=== PATIENT | male | born 1965 | race Two or more races ===

== ENCOUNTER 2019-09-13 11:58 | Inpatient (IN) | payer MEDICAID ==
[~2019-09-13] VITALS: Ht 175.3 cm; Wt 126.6 kg
[2019-09-13] VITALS (21 sets, daily range): BP systolic 96–147; BP diastolic 51–83
--- NOTE | 2019-09-13 16:10 | NUR ---
Received intubated patient from transport on ventilator with given settings of: AC mode, rate of 35, +16, 100% FiO2. ETT 7.5mm at 23cm lip line. Switched patient on Esposito vent with same settings with no complications. All alarms on and audible. Ambubag at bedside. Suctioned small amounts of white pale thin secretions from ETT. Airway is patent and secured with anchor fast. ABG and EKG was ordered and done. Will Continue to monitor through out shift.
--- NOTE | 2019-09-13 16:23 | NUR ---
RECEIVED PATIENT FROM [facility], PATIENT UNSTABLE , PATIENT TACHYPNEIC, PT TACHY. BP WNL
[2019-09-13] MEDS ORDERED: FENTANYL CITRAT IV 1,000 MCG in IV NORMAL SALINE 80 ML IV PRN ×2 (16:45→17:15)
[2019-09-13] MEDS ORDERED: VECURONIUM BROMIDE 50 MG in IV NORMAL SALINE 50 ML IV PRN ×2 (16:45→17:30)
[2019-09-13 17:35] LABS: ABG BASE EXCESS -3.2 mmol/L; ABG HCO3 34.9 mmol/L; ABG PCO2 161.1 mmHg (35.0-45.0); ABG PH 6.953 (7.350-7.450); ABG PO2 75.9 mmHg (75.0-100.0); ABG SITE RIGHT RADIAL; ABG TOTAL HEMOGLOBIN 16.8 G/dL (13.5-18.0); COHb 0.8 % (0.5-1.5); MetHb 0.7 % (0.0-1.5); O2Hb 90.3 % (94.0-97.0); VENT MODE VENT - A/C; VT, ABG 400 mL
[2019-09-13] MEDS: MIDAZOLAM HCL 50 MG in IV NORMAL SALINE 40 ML IV PRN (17:35)
[2019-09-13] MEDS: ACETAMINOPHEN 650 MG/20.3 ML LIQUID UDC GT PRN (18:11)
[2019-09-13] MEDS: FENTANYL CITRAT IV 1,000 MCG in IV NORMAL SALINE 80 ML IV PRN (18:16)
--- NOTE | 2019-09-13 19:30 | NUR ---
Report received. Patient was a transfer from [facility] DX: COVID 19. Orally intubated and to mechanical ventilator. Dr. Phan here writing orders. Plan of care discussed. Spoke to Pharmacist Keagan re: Remdesivir order. Patient's daughter called, but speaks only Romansh; unable to discuss on going treatments. Patient on continuous Versed and Fentanyl drips via infusion pumps. See IV spread sheet for rates/dosages. Addendum: 09/14/19 at 0227 by TOÑITO MATA RN Amended: Links added.
[2019-09-13 19:33] LABS: MetHb 0.8 % (0.0-1.5); VENT MODE VENT - A/C
--- NOTE | 2019-09-13 19:33 | NUR ---
ABGs drawn by Keagan FENTON; results seen by Dr. Phan. TV increased to 500 ml. PCXR done.
[2019-09-13] MEDS ORDERED: PROPOFOL 100 ML IV PRN (19:45)
--- NOTE | 2019-09-13 20:00 | NUR ---
[id number]; with continuous cooling mattress on. COVID 19 isolation maintained.
--- NOTE | 2019-09-13 20:30 | NUR ---
Dr. Darling here. Spoke with Dr. Phan re: patient's plan of care. PICC line order received. Livestock Farmworker notified.
[2019-09-13 20:39] LABS: BASOPHILS # (AUTO) 0.2 K/uL (0.0-8.0); BASOPHILS % (AUTO) 0.9 % (0.0-2.0); HEMATOCRIT 48.8 % (36.7-47.1); HEMOGLOBIN 15.8 g/dL (12.5-16.3); LYMPHOCYTES # (AUTO) 1.1 K/uL (20.0-40.0); LYMPHOCYTES % (AUTO) 4.6 % (20.5-51.5); MEAN CORPUSCULAR HEMOGLOBIN 31.9 uug (23.8-33.4); MEAN CORPUSCULAR HGB CONC 32 g/dL (32.5-36.3); MEAN CORPUSCULAR VOLUME 98.7 fL (73.0-96.2); MONOCYTES # (AUTO) 1.1 K/uL (2.0-10.0); MONOCYTES % (AUTO) 4.7 % (0.0-11.0); NEUTROPHILS # (AUTO) 21.5 K/uL (1.8-8.9); NEUTROPHILS % (AUTO) 89.8 % (38.5-71.5); PLATELET COUNT (AUTO) 353 K/uL (152-348); RED BLOOD CELL COUNT(AUTO) 4.95 MIL/uL (4.06-5.63); WHITE BLOOD COUNT (AUTO) 23.9 K/uL (3.6-10.2)
--- NOTE | 2019-09-13 20:45 | NUR ---
Spoke to Matt adler RN at [facility] re: Remdesivir. As per Matt patient did not receive any dose at their facility. Pharmacist Keagan nolasco.
[2019-09-13] MEDS ORDERED: FAMOTIDINE. 20 MG/2 ML VIAL IV SCH (21:00)
[2019-09-13 21:04] LABS: BILIRUBIN,DIRECT 0.2 mg/dL (0.0-0.2); BILIRUBIN,TOTAL 0.5 mg/dL (0.2-1.0); CREATININE 3.8 mg/dL (0.6-1.3); MAGNESIUM 3.4 mg/dL (1.8-2.4); TOTAL PROTEIN, SERUM 7.6 g/dL (6.4-8.2)
[2019-09-13 21:09] LABS: PHOSPHOROUS 12.3 mg/dL (2.5-4.9); POTASSIUM 6.5 mmol/L (3.5-5.1)
[2019-09-13] MEDS ORDERED: MORPHINE SULFATE 2 MG/1 ML DISP.SYRIN IV PRN (21:15)
[2019-09-13] MEDS ORDERED: ACETAMINOPHEN 650 MG SUPP.RECT RC PRN (21:15)
--- NOTE | 2019-09-13 21:15 | NUR ---
Dr. Darling informed of critical labs; orders received.
[2019-09-13] MEDS: CEFTRIAXONE 1 G in IV DEXTROSE 5% 50 ML IV SCH (21:16)
[2019-09-13] MEDS: DEXAMETHASONE SOD PHOSPHATE 10 MG INJ IV SCH (21:16)
[2019-09-13] MEDS: ENOXAPARIN SODIUM 100 MG/ML DISP.SYRIN SQ SCH (21:17)
[2019-09-13] MEDS: IV NS 1000 ML 1,000 ML IV PRN (21:20)
[2019-09-13] MEDS ORDERED: INSULIN REGULAR, HUMAN 300 UNIT/3 ML VIAL IV ONE (21:45)
[2019-09-13] MEDS ORDERED: DEXTROSE 50% 50 ML DISP.SYRIN IV ONE (21:45)
[2019-09-13] MEDS ORDERED: DEXTROSE 50% 50 ML DISP.SYRIN IV PRN (22:00)
[2019-09-13] MEDS ORDERED: REMDESIVIR (INVESTIGATIONAL) 200 MG in IV NORMAL SALINE 210 ML IV ONE (22:00)
--- NOTE | 2019-09-13 22:00 | NUR ---
Remdesivir IV given. VS monitored closely.
[2019-09-13 22:23] LABS: ABG BASE EXCESS -3.5 mmol/L; ABG HCO3 32.1 mmol/L; ABG PCO2 128.1 mmHg (35.0-45.0); ABG PH 7.017 (7.350-7.450); ABG PO2 101.8 mmHg (75.0-100.0); ABG SITE LEFT RADIAL; ABG TOTAL HEMOGLOBIN 16.2 G/dL (13.5-18.0); COHb 0.8 % (0.5-1.5); O2Hb 96.1 % (94.0-97.0); VT, ABG 500 mL
--- NOTE | 2019-09-13 22:40 | NUR ---
Repeat ABGs done by RT. Results called to Dr. Phan; orders received. Vent changes made by Keagan FENTON. O2 saturations 95-96%.
--- NOTE | 2019-09-13 22:43 | NUR ---
VENT CHANGES, PER T/O DR BEE, VT 550ML, DECREASE PEEP14, KEEP ABOVE 92%, R/N. NOTIFIED. Loretta RAYMUNDO NETWORK DEVELOPMENT COORDINATOR Addendum: 09/13/19 at 2244 by EMILIE RAYMUNDO RT Amended: Links added.
--- NOTE | 2019-09-13 23:30 | NUR ---
Remdesivir dose completed with untoward reactions. BPs stable.
[2019-09-13] MEDS: BLOOD SUGAR DIAGNOSTIC 1 EACH STRIP VI SCH (23:45)
[2019-09-13] MEDS: INSULIN REGULAR, HUMAN 300 UNIT/3 ML VIAL SQ PRN (23:46)
[2019-09-14] VITALS (75 sets, daily range): BP systolic 103–167; BP diastolic 50–89
[2019-09-14 00:31] LABS: BAND % (MANUAL) 6 % (0-10); LYMPHOCYTES % (MANUAL) 3 % (20-40); METAMYELOCYTES % 1 % (0-1); MONOCYTES % (MANUAL) 2 % (2-10); NEUTROPHILS % (MANUAL) 88 % (42-75)
[2019-09-14] MEDS: ALBUTEROL SULFATE 8 GM HFA.AER.AD IH SCH ×4 (01:45→19:33)
--- NOTE | 2019-09-14 02:00 | NUR ---
PT ON CONT RUSSELL VENT WITH 7.5 ET/TUBE , LIP LINE 23CM, IN PLACE AND SECURED, WITH ANCHOR FAST, SETTINGS, A/C 35, 400ML, PEEP16, 100%. PT WITH HIGH PCO2 RETENTION, ABG WAS DRAWN, DR BEE PRESENT. THEN ADJUST VENT TO VT 500ML, REPEAT ABG APPROX, 22:15, SLIGHTLY IMPROVED, DR BEE CALLED, NEW SETTINGS, VT 550ML, PEEP14, SUCTIONED VERY LITTLE, SPUTUM OBTAINED, APPROX. 0130 INFORMED NURSE TOÑITO, PT IN ISOLATION , MDI GIVEN X 1 - CHANGE HME, ALL PPE EQUIPMENT USED, ABG IN AM 0800. Loretta RAYMUNDO REFRIGERATOR REPAIRMAN Addendum: 09/14/19 at 0204 by EMILIE RAYMUNDO RT Amended: Links added.
--- NOTE | 2019-09-14 05:00 | NUR ---
Moderately agitated; bucking the vent. Versed drip titrated for adequate sedation. VS monitored closely.
[2019-09-14 05:39] LABS: BILIRUBIN,DIRECT 0.2 mg/dL (0.0-0.2); BILIRUBIN,TOTAL 0.4 mg/dL (0.2-1.0); CREATININE 3.5 mg/dL (0.6-1.3)
[2019-09-14] MEDS: BLOOD SUGAR DIAGNOSTIC 1 EACH STRIP VI SCH ×4 (05:42→23:46)
[2019-09-14] MEDS: INSULIN REGULAR, HUMAN 300 UNIT/3 ML VIAL SQ PRN ×4 (05:43→23:47)
[2019-09-14 05:47] LABS: THYROID STIMULATING HORMONE 0.415 mIU/mL (0.358-3.740)
[2019-09-14 05:58] LABS: POTASSIUM 6.2 mmol/L (3.5-5.1)
--- NOTE | 2019-09-14 06:00 | NUR ---
Remains on the same vent settings. Saturations above 94%. Versed drip up to 6 mg/H, Fentanyl drip at 50 mcg/H. BPs 140's-160's systole. Remains tachycardic rate 110's.
[2019-09-14] MEDS: MIDAZOLAM HCL 50 MG in IV NORMAL SALINE 40 ML IV PRN ×3 (06:15→20:27)
[2019-09-14 06:53] LABS: BASOPHILS % (AUTO) 0.2 % (0.0-2.0); HEMATOCRIT 45.2 % (36.7-47.1); HEMOGLOBIN 14.7 g/dL (12.5-16.3); LYMPHOCYTES # (AUTO) 0.8 K/uL (20.0-40.0); LYMPHOCYTES % (AUTO) 4.7 % (20.5-51.5); MEAN CORPUSCULAR HGB CONC 33 g/dL (32.5-36.3); MEAN CORPUSCULAR VOLUME 98.4 fL (73.0-96.2); MONOCYTES # (AUTO) 0.8 K/uL (2.0-10.0); MONOCYTES % (AUTO) 4.8 % (0.0-11.0); NEUTROPHILS # (AUTO) 15.3 K/uL (1.8-8.9); NEUTROPHILS % (AUTO) 90.3 % (38.5-71.5); PLATELET COUNT (AUTO) 191 K/uL (152-348)
[2019-09-14 07:20] LABS: MAGNESIUM 2.9 mg/dL (1.8-2.4); PHOSPHOROUS 7.6 mg/dL (2.5-4.9)
[2019-09-14 07:47] LABS: ABG HCO3 24.4 mmol/L; ABG PCO2 85.3 mmHg (35.0-45.0); ABG PH 7.074 (7.350-7.450); ABG PO2 102.9 mmHg (75.0-100.0); ABG SITE RIGHT RADIAL; ABG TOTAL HEMOGLOBIN 15.8 G/dL (13.5-18.0); COHb 0.8 % (0.5-1.5); MetHb 0.6 % (0.0-1.5); O2Hb 96.5 % (94.0-97.0); VENT MODE VENT - A/C 35; VT, ABG 550 mL
[2019-09-14] MEDS ORDERED: DEXTROSE 50% 50 ML DISP.SYRIN IV ONE (08:30)
[2019-09-14] MEDS ORDERED: INSULIN REGULAR, HUMAN 300 UNIT/3 ML VIAL IV ONE (08:30)
[2019-09-14] MEDS ORDERED: INSULIN REGULAR, HUMAN 300 UNIT/3 ML VIAL SQ ONE (08:30)
[2019-09-14] MEDS: DEXAMETHASONE SOD PHOSPHATE 10 MG INJ IV SCH (09:06)
[2019-09-14] MEDS: ENOXAPARIN SODIUM 100 MG/ML DISP.SYRIN SQ SCH (09:06)
[2019-09-14] MEDS: INSULIN GLARGINE,HUM 300 UNITS/3 ML CARTRIDGE SQ SCH ×2 (09:09→21:10)
[2019-09-14] MEDS: ACETAMINOPHEN 650 MG/20.3 ML LIQUID UDC GT PRN (09:10)
[2019-09-14] MEDS: FENTANYL CITRAT IV 1,000 MCG in IV NORMAL SALINE 80 ML IV PRN ×2 (10:02→19:09)
[2019-09-14] MEDS: IV NS 1000 ML 1,000 ML IV PRN (10:50)
[2019-09-14] MEDS ORDERED: methylPREDNISolone SOD SUCC 40 MG/ML VIAL IV ONE (11:30)
[2019-09-14] MEDS ORDERED: ACETAMINOPHEN 650 MG/20.3 ML LIQUID UDC NG ONE (13:30)
[2019-09-14] MEDS ORDERED: diphenhydrAMINE 50 MG/1 ML VIAL IV ONE (13:30)
[2019-09-14 13:54] LABS: CREATININE 4.1 mg/dL (0.6-1.3)
[2019-09-14] MEDS ORDERED: TOCILIZUMAB 400 MG in IV NORMAL SALINE 80 ML IV ONE (14:00)
[2019-09-14 14:09] LABS: POTASSIUM 6.2 mmol/L (3.5-5.1)
[2019-09-14] MEDS ORDERED: REMDESIVIR (INVESTIGATIONAL) 100 MG in IV NORMAL SALINE 230 ML IV SCH ×2 (15:45→21:00)
[2019-09-14] MEDS ORDERED: HEPARIN SODIUM,PORCINE 5,000 UNITS/ML VIAL IV PRN ×2 (15:45)
[2019-09-14] MEDS ORDERED: SODIUM POLYSTYRENE SULFONATE 15 G/60 ML LIQUID UDC PO ONE (17:00)
--- NOTE | 2019-09-14 17:25 | NUR ---
pt rec'd on menendez vent, orally intubated tolerating settings well, no distress noted. inline MDI tx's given per MD order. Sxn'ing performed Q2, oral care performed. vent setting change done during shift, PEEP 14 decrease to 12. cont with current RT plan of care. cont to monitor and report any changes.
--- NOTE | 2019-09-14 20:00 | NUR ---
RECEIVED PT ORALLY INTUBATED TO VENT W/ SETTINGS OF AC-35, TV-550, FIO2-100%, PEEP-+12 W/ O2 SAT OF 93%. ORAL GASTRIC TUBE INTACT & CLAMPED. PICC LINE ON AUTUMN INTACT & PATENT. VERSED @7MG/HR. FENTANYL DRIP @ 115MCQ/HR. NS @ 80CC/HR. ORAL CARE DONE AFTER SUCTIONED BY RT. AFEBRILE. Addendum: 09/15/19 at 0243 by GRADY BAR RN FENTANYL DRIP @ 0.115MCQ/HR.
[2019-09-14] MEDS ORDERED: BUMETANIDE INJ 8 MG in IV DEXTROSE 5% 48 ML IV ONE (21:00)
[2019-09-14] MEDS ORDERED: HEPARIN SODIUM,PORCINE 5,000 UNITS/ML VIAL IV ONE (21:00)
[2019-09-14] MEDS: FAMOTIDINE. 20 MG/2 ML VIAL IV SCH (21:07)
[2019-09-14] MEDS: CEFTRIAXONE 1 G in IV DEXTROSE 5% 50 ML IV SCH (21:08)
[2019-09-14] MEDS: HEPARIN/D5W DRIP 500 ML IV PRN (21:23)
[2019-09-14] MEDS: SODIUM BICARBONATE 8.4% 100 MEQ in IV 1/2NS 1000 ML 1,000 ML IV PRN (21:37)
[2019-09-15] VITALS (26 sets, daily range): BP systolic 110–145; BP diastolic 61–76
--- NOTE | 2019-09-15 | NUR ---
BEDBATH GIVEN W/ MAXIMUM HELP FROM OTHER STAFF MEMBER.
[2019-09-15] MEDS: ALBUTEROL SULFATE 8 GM HFA.AER.AD IH SCH ×4 (00:40→19:35)
[2019-09-15] MEDS: FENTANYL CITRAT IV 1,000 MCG in IV NORMAL SALINE 80 ML IV PRN ×3 (03:42→18:29)
[2019-09-15 04:10] LABS: BILIRUBIN,DIRECT 0.2 mg/dL (0.0-0.2); BILIRUBIN,TOTAL 0.3 mg/dL (0.2-1.0); CREATININE 4.4 mg/dL (0.6-1.3); MAGNESIUM 3.2 mg/dL (1.8-2.4); PHOSPHOROUS 5.9 mg/dL (2.5-4.9); POTASSIUM 5.3 mmol/L (3.5-5.1); TOTAL PROTEIN, SERUM 6.2 g/dL (6.4-8.2)
[2019-09-15 04:19] LABS: BASOPHILS % (AUTO) 0.1 % (0.0-2.0); HEMATOCRIT 41.4 % (36.7-47.1); HEMOGLOBIN 13.8 g/dL (12.5-16.3); LYMPHOCYTES # (AUTO) 0.4 K/uL (20.0-40.0); LYMPHOCYTES % (AUTO) 3.5 % (20.5-51.5); MEAN CORPUSCULAR HEMOGLOBIN 32.4 uug (23.8-33.4); MEAN CORPUSCULAR HGB CONC 33 g/dL (32.5-36.3); MEAN CORPUSCULAR VOLUME 97.1 fL (73.0-96.2); MONOCYTES # (AUTO) 0.6 K/uL (2.0-10.0); MONOCYTES % (AUTO) 5.7 % (0.0-11.0); NEUTROPHILS # (AUTO) 9.9 K/uL (1.8-8.9); NEUTROPHILS % (AUTO) 90.7 % (38.5-71.5); PLATELET COUNT (AUTO) 177 K/uL (152-348); RED BLOOD CELL COUNT(AUTO) 4.27 MIL/uL (4.06-5.63); WHITE BLOOD COUNT (AUTO) 10.9 K/uL (3.6-10.2)
--- NOTE | 2019-09-15 04:48 | NUR ---
Patient received orally intubated with a 7.5 Ettube, ~23cm lipline. Tube is secured with anchorfast: position changed throughout shift to prevent skin abrasion. He is on Esposito vent with prescribed settings. Titrated Fio2, Spo2 remains 99-100%. MDI TXs administered and tolerated well, no adverse reactions noted. Alarms assessed and are on/audible. Ambubag at bedside. Will continue to monitor throughout shift.
[2019-09-15 05:32] LABS: *BILIRUBIN,URIN NEGATIVE (NEGATIVE); *BLOOD, URINE 2+ (NEGATIVE); *CLARITY,URINE CLOUDY (CLEAR); *COLOR,URINE DARK YELLOW (YELLOW); *KETONES,URINE NEGATIVE (NEGATIVE); *UROBILINOGEN,URINE 0.2 E.U./dl (NORMAL); LEUKOCYTE ESTERASE ,URINE 2+ (NEGATIVE); NITRITE, URINE NEGATIVE (NEGATIVE); UGLUCOSE NEGATIVE (NEGATIVE)
[2019-09-15 05:35] LABS: *CREATININE,URINE 84.4 mg/dL (30-125); *URINE TOTAL PROTEIN RANDOM 37.6 mg/dL (<150/24HR)
--- NOTE | 2019-09-15 05:45 | NUR ---
REPOSITIONED PT AFTER CXR.
[2019-09-15] MEDS: BLOOD SUGAR DIAGNOSTIC 1 EACH STRIP VI SCH ×3 (05:59→17:21)
[2019-09-15] MEDS: INSULIN REGULAR, HUMAN 300 UNIT/3 ML VIAL SQ PRN ×3 (06:01→17:20)
[2019-09-15] MEDS: MIDAZOLAM HCL 50 MG in IV NORMAL SALINE 40 ML IV PRN ×2 (06:52→13:47)
[2019-09-15 07:43] LABS: ABG BASE EXCESS -1.6 mmol/L; ABG HCO3 25.6 mmol/L; ABG PH 7.301 (7.350-7.450); ABG SITE LEFT RADIAL; ABG TOTAL HEMOGLOBIN 14.2 G/dL (13.5-18.0); COHb 0.6 % (0.5-1.5); MetHb 0.5 % (0.0-1.5); O2Hb 89.7 % (94.0-97.0); VENT MODE VENT - A/C; VT, ABG 550 mL
[2019-09-15 08:13] LABS: BACTERIA,URINE MANY /HPF (NONE SEEN); SQUAMOUS EPITHELIAL CELL,UR FEW /HPF (NONE SEEN); WBC,URINE 50-80 /HPF (0-3)
[2019-09-15 08:14] LABS: URIC ACID CRYSTALS,URINE MODERATE /HPF (NONE SEEN)
[2019-09-15] MEDS: DEXAMETHASONE SOD PHOSPHATE 10 MG INJ IV SCH (08:16)
[2019-09-15] MEDS: INSULIN GLARGINE,HUM 300 UNITS/3 ML CARTRIDGE SQ SCH ×2 (08:18→21:27)
[2019-09-15] MEDS: SODIUM BICARBONATE 8.4% 100 MEQ in IV 1/2NS 1000 ML 1,000 ML IV PRN ×2 (08:48→20:19)
--- NOTE | 2019-09-15 09:42 | NUR ---
Dr. Phan here to see pt. Full report given. New orders received.
--- NOTE | 2019-09-15 10:42 | NUR ---
Per Dr. Phan, no high level of care or plan for ECMO therapy for pt needed at this time.
[2019-09-15] MEDS: METOPROLOL TARTRATE 5 MG/5 ML VIAL IVP PRN (12:23)
[2019-09-15] MEDS: HEPARIN/D5W DRIP 500 ML IV PRN (14:07)
[2019-09-15] MEDS: ACETAMINOPHEN 650 MG/20.3 ML LIQUID UDC GT PRN ×2 (18:32→21:27)
--- NOTE | 2019-09-15 19:15 | NUR ---
Patient received in bed in semi-carlos's position, he is orally intubated with a 7.5 Ett @23cm lip line. He is on Esposito vent AC 28, Vt 550, FiO2 30%, PEEP 12. Spo2 95%. Patient has numerous IV lines, AUTUMN PICC, Right and Left AC peripheral line. OGT clamped to suction. F/C draining cloudy yellow urine. Patient is on continuous rectal temperature monitoring and on a cooling blanket for consistent >101* temperature.
[2019-09-15] MEDS ORDERED: DOXYCYCLINE HYCLATE IV 200 MG in IV DEXTROSE 5% 250 ML IV SCH (21:00)
[2019-09-15] MEDS: FAMOTIDINE. 20 MG/2 ML VIAL IV SCH (21:15)
[2019-09-15] MEDS: CEFTRIAXONE 1 G in IV DEXTROSE 5% 50 ML IV SCH (21:16)
[2019-09-15] MEDS: DOXYCYCLINE HYCLATE IV 100 MG in IV DEXTROSE 5% 100 ML IV SCH (21:27)
--- NOTE | 2019-09-15 21:38 | NUR ---
Pt rec'd on Esposito settings AC 28, VT 550, PEEP +12 and FIO2-90%. No resp. distress noted. 7.5 ETT is patent and secure at approx. 23cm at the lip. Pt to be monitored throughout the shift, PRN SX and adm'd MDI tx's per MD orders. Esposito alarm parameters have been checked and remain audible.
--- NOTE | 2019-09-15 23:05 | NUR ---
FIO2 to 100% per low SpO2. RN BR aware/notified. No resp. distress noted at this time.
--- NOTE | 2019-09-15 23:10 | NUR ---
Around 2200, patient was experiencing desaturation down to the low 80s, and has become quite agitated. Suctioning scant secretions from ETT, and small amounts orally, however this had no affect on oxygen saturation. Patient repositioned and RT increased FiO2 settings on the vent to 100%. Increased fentanyl drip to reduce agitation. Patient slowly returned to 93-95% saturation, and agitation decreased.
[2019-09-16] VITALS (23 sets, daily range): BP systolic 107–156; BP diastolic 66–97
[2019-09-16] MEDS: ALBUTEROL SULFATE 8 GM HFA.AER.AD IH SCH ×4 (00:32→19:43)
[2019-09-16] MEDS: BLOOD SUGAR DIAGNOSTIC 1 EACH STRIP VI SCH ×4 (00:36→18:05)
[2019-09-16] MEDS: INSULIN REGULAR, HUMAN 300 UNIT/3 ML VIAL SQ PRN ×4 (00:37→18:07)
[2019-09-16] MEDS: MIDAZOLAM HCL 50 MG in IV NORMAL SALINE 40 ML IV PRN ×4 (00:52→15:03)
[2019-09-16] MEDS: FENTANYL CITRAT IV 1,000 MCG in IV NORMAL SALINE 80 ML IV PRN ×5 (00:53→23:49)
--- NOTE | 2019-09-16 02:00 | NUR ---
Patient is experiencing high tachycardia rates in the 140s-160. Blood pressure also elevated with 150 systolic. Administered PRN Metoprolol IVP.
[2019-09-16] MEDS: METOPROLOL TARTRATE 5 MG/5 ML VIAL IVP PRN ×2 (02:05→15:03)
[2019-09-16] MEDS ORDERED: FENTANYL CITRATE 100 MCG/2 ML AMPUL ONE ×3 (04:20→04:36)
[2019-09-16 05:28] LABS: BASOPHILS # (AUTO) 0.1 K/uL (0.0-8.0); BASOPHILS % (AUTO) 1.1 % (0.0-2.0); HEMATOCRIT 43.2 % (36.7-47.1); HEMOGLOBIN 14.5 g/dL (12.5-16.3); LYMPHOCYTES # (AUTO) 0.4 K/uL (20.0-40.0); LYMPHOCYTES % (AUTO) 3.8 % (20.5-51.5); MEAN CORPUSCULAR HEMOGLOBIN 31.9 uug (23.8-33.4); MEAN CORPUSCULAR HGB CONC 34 g/dL (32.5-36.3); MEAN CORPUSCULAR VOLUME 94.9 fL (73.0-96.2); MONOCYTES # (AUTO) 0.6 K/uL (2.0-10.0); MONOCYTES % (AUTO) 6.3 % (0.0-11.0); NEUTROPHILS # (AUTO) 8.5 K/uL (1.8-8.9); NEUTROPHILS % (AUTO) 88.8 % (38.5-71.5); PLATELET COUNT (AUTO) 173 K/uL (152-348); RED BLOOD CELL COUNT(AUTO) 4.55 MIL/uL (4.06-5.63); WHITE BLOOD COUNT (AUTO) 9.6 K/uL (3.6-10.2)
[2019-09-16 05:37] LABS: BILIRUBIN,DIRECT 0.2 mg/dL (0.0-0.2); BILIRUBIN,TOTAL 0.5 mg/dL (0.2-1.0); CREATININE 3.8 mg/dL (0.6-1.3); MAGNESIUM 2.9 mg/dL (1.8-2.4); PHOSPHOROUS 6.6 mg/dL (2.5-4.9); POTASSIUM 4.5 mmol/L (3.5-5.1); TOTAL PROTEIN, SERUM 6.3 g/dL (6.4-8.2)
[2019-09-16] MEDS: HEPARIN/D5W DRIP 500 ML IV PRN (05:37)
[2019-09-16 07:23] LABS: ABG HCO3 26.7 mmol/L; ABG PCO2 46.6 mmHg (35.0-45.0); ABG PH 7.376 (7.350-7.450); ABG PO2 56.9 mmHg (75.0-100.0); ABG SITE LEFT RADIAL; ABG TOTAL HEMOGLOBIN 14.9 G/dL (13.5-18.0); MetHb 0.7 % (0.0-1.5); O2Hb 87.1 % (94.0-97.0); VENT MODE VENT - A/C; VT, ABG 550 mL
[2019-09-16] MEDS: DEXAMETHASONE SOD PHOSPHATE 10 MG INJ IV SCH (07:46)
[2019-09-16] MEDS: DOXYCYCLINE HYCLATE IV 100 MG in IV DEXTROSE 5% 100 ML IV SCH ×2 (07:46→20:35)
[2019-09-16] MEDS: INSULIN GLARGINE,HUM 300 UNITS/3 ML CARTRIDGE SQ SCH ×2 (08:24→21:38)
[2019-09-16] MEDS: SODIUM BICARBONATE 8.4% 100 MEQ in IV 1/2NS 1000 ML 1,000 ML IV PRN ×2 (08:32→20:55)
[2019-09-16] MEDS: ACETAMINOPHEN 650 MG/20.3 ML LIQUID UDC GT PRN (08:33)
--- NOTE | 2019-09-16 09:26 | NUR ---
Dr. Phan here to see pt. Full report given. New orders received.
[2019-09-16] MEDS ORDERED: Z GUARD REMEDY PASTE 57 GM TUBE TOP PRN (16:00)
--- NOTE | 2019-09-16 17:48 | NUR ---
Spoke with Dr. Dixon on the telephone and MD velázquez to start tube feeding for pt per dietary recommendations.
[2019-09-16] MEDS: GLUCERNA 1.2 1000ML LIQUID GT PRN (18:16)
--- NOTE | 2019-09-16 20:00 | NUR ---
RECEIVED PT ORALLY INTUBATED TO VENT W/ SETTINGS OF AC-28, TV-550, FIO2-100%,PEEP-+15 W/ O2 SAT OF 90%. ORAL GASTRIC TUBE IN PLACE, CHECKED PLACEMENT & CHECKED RESIDUAL NONE NOTED. STARTED TUBE FDG. OF GLUCERNA 1.2 @ 20CC/HR. ON FENTANYL DRIP @ 0.23 MG/HR. VIA PICC LINE ON AUTUMN. VERSED DRIP @ 7MG/HR. IVF 1/2NS W/ 100MEQ SODIUM BICARB @ 100 CC/HR. ON HEPARIN DRIP @ 1420 UNITS/HR. NS @ 10CC/H FO IVPB MED. REPOSITIONED W/ HOB ELEVATED.
[2019-09-16] MEDS: FAMOTIDINE. 20 MG/2 ML VIAL IV SCH (20:35)
[2019-09-16] MEDS: CEFTRIAXONE 1 G in IV DEXTROSE 5% 50 ML IV SCH (21:30)
[2019-09-17] VITALS (27 sets, daily range): BP systolic 123–161; BP diastolic 75–108
[2019-09-17] MEDS: BLOOD SUGAR DIAGNOSTIC 1 EACH STRIP VI SCH ×4 (00:06→17:34)
[2019-09-17] MEDS: INSULIN REGULAR, HUMAN 300 UNIT/3 ML VIAL SQ PRN ×4 (00:08→17:41)
[2019-09-17] MEDS: MIDAZOLAM HCL 50 MG in IV NORMAL SALINE 40 ML IV PRN ×4 (00:08→18:39)
[2019-09-17] MEDS: ALBUTEROL SULFATE 8 GM HFA.AER.AD IH SCH ×4 (01:34→19:30)
--- NOTE | 2019-09-17 02:00 | NUR ---
NGT RESIDUAL CHECKED 5CC NOTED , INCREASED RATE TO 30CC/HR.
[2019-09-17] MEDS: HEPARIN/D5W DRIP 500 ML IV PRN ×2 (02:20→21:13)
--- NOTE | 2019-09-17 02:23 | NUR ---
PT on cont vent menendez with 7.5 et/tube in place and secured, settings, a/c 28, vt 550ml, peep15, 100%, mdi given by nursing, suction, no vent changes made, sat 86_90% approx, change hme all vent alarms good, abg at 0700. D ZACKARY RAMIREZP Addendum: 09/17/19 at 0225 by EMILIE RAYMUNDO RT Amended: Links added.
--- NOTE | 2019-09-17 04:00 | NUR ---
AM CARE DONE. ORAL CARE DONE. REPOSITIONED W/ HOB ELEVATED.
[2019-09-17] MEDS: FENTANYL CITRAT IV 1,000 MCG in IV NORMAL SALINE 80 ML IV PRN ×4 (04:58→19:39)
[2019-09-17 05:34] LABS: BASOPHILS # (AUTO) 0.1 K/uL (0.0-8.0); BASOPHILS % (AUTO) 0.7 % (0.0-2.0); EOSINOPHILS % (AUTO) 0.1 % (0.0-7.0); HEMATOCRIT 48.4 % (36.7-47.1); HEMOGLOBIN 16.3 g/dL (12.5-16.3); LYMPHOCYTES # (AUTO) 0.4 K/uL (20.0-40.0); LYMPHOCYTES % (AUTO) 2.6 % (20.5-51.5); MEAN CORPUSCULAR HEMOGLOBIN 32.1 uug (23.8-33.4); MEAN CORPUSCULAR HGB CONC 34 g/dL (32.5-36.3); MEAN CORPUSCULAR VOLUME 95.3 fL (73.0-96.2); MONOCYTES # (AUTO) 0.5 K/uL (2.0-10.0); MONOCYTES % (AUTO) 3.4 % (0.0-11.0); NEUTROPHILS # (AUTO) 13.1 K/uL (1.8-8.9); NEUTROPHILS % (AUTO) 93.2 % (38.5-71.5); PLATELET COUNT (AUTO) 156 K/uL (152-348); RED BLOOD CELL COUNT(AUTO) 5.08 MIL/uL (4.06-5.63)
[2019-09-17 06:07] LABS: BILIRUBIN,DIRECT 0.1 mg/dL (0.0-0.2); BILIRUBIN,TOTAL 0.5 mg/dL (0.2-1.0); CREATININE 5.6 mg/dL (0.6-1.3); MAGNESIUM 3.2 mg/dL (1.8-2.4); POTASSIUM 4.9 mmol/L (3.5-5.1); TOTAL PROTEIN, SERUM 6.5 g/dL (6.4-8.2)
[2019-09-17 06:15] LABS: PHOSPHOROUS 11.2 mg/dL (2.5-4.9)
[2019-09-17] MEDS: IV NORMAL SALINE 250 ML IV PRN ×2 (06:31→21:32)
--- NOTE | 2019-09-17 06:43 | NUR ---
DR AGUILAR CALLED RE: [phone].
[2019-09-17] MEDS: SODIUM BICARBONATE 8.4% 100 MEQ in IV 1/2NS 1000 ML 1,000 ML IV PRN ×2 (07:02→18:34)
--- NOTE | 2019-09-17 07:33 | NUR ---
Patient received orally intubated with a 7.5 Ettube, ~23cm lipline. Tube is secured with anchor fast. Pt Esposito vent with prescribed settings.MDI TXs administered and tolerated well, no adverse reactions noted. Alarms assessed and are on/audible. Ambubag at bedside. Will continue to monitor throughout shift.
[2019-09-17 08:14] LABS: ABG BASE EXCESS -2.4 mmol/L; ABG PCO2 46.9 mmHg (35.0-45.0); ABG PH 7.327 (7.350-7.450); ABG PO2 61.3 mmHg (75.0-100.0); ABG SITE RIGHT RADIAL; ABG TOTAL HEMOGLOBIN 16.5 G/dL (13.5-18.0); COHb 0.6 % (0.5-1.5); MetHb 0.3 % (0.0-1.5); O2Hb 88.6 % (94.0-97.0); VENT MODE VENT - A/C; VT, ABG 550 mL
[2019-09-17 08:45] LABS: CRYPTOCOCCUS AB, SERUM Negative (Negative)
[2019-09-17] MEDS: DOXYCYCLINE HYCLATE IV 100 MG in IV DEXTROSE 5% 100 ML IV SCH ×2 (08:45→20:56)
[2019-09-17] MEDS: DEXAMETHASONE SOD PHOSPHATE 10 MG INJ IV SCH (08:45)
[2019-09-17] MEDS: INSULIN GLARGINE,HUM 300 UNITS/3 ML CARTRIDGE SQ SCH ×2 (08:48→20:27)
--- NOTE | 2019-09-17 09:45 | NUR ---
Pulmonary services, Dr. Phan in the unit to see and examine patient, report given orders received and implemented.
[2019-09-17] MEDS ORDERED: INSULIN GLARGINE,HUM 300 UNITS/3 ML CARTRIDGE SQ ONE (10:11)
--- NOTE | 2019-09-17 10:45 | NUR ---
PER MD ORDER. VENT CHANGES MADE; PCV RATE OF 28, PRESSURE CONTROL OF 35. PEEP +15. 100%FIO2. FOLLOW UP ABG ORDERED AFTER 1 HR. WILL CONTINUE TO MONITOR.
--- NOTE | 2019-09-17 10:45 | NUR ---
As ordered by boatswain mate Dr. Phan Vent settings changed to: PCV Rate 28, PS of 35. PEEP +15. and FIO2 100%. to be follow up by Post 1hr of setting change. changes implemented by RT. Mobley
[2019-09-17] MEDS: METOPROLOL TARTRATE 5 MG/5 ML VIAL IVP PRN (11:44)
[2019-09-17] MEDS ORDERED: BUMETANIDE INJ 4 MG in IV DEXTROSE 5% 24 ML IV ONE (11:45)
[2019-09-17] MEDS: METOPROLOL TARTRATE 25 MG TABLET NG SCH ×2 (11:46→20:31)
[2019-09-17] MEDS: MORPHINE SULFATE 2 MG/1 ML DISP.SYRIN IV PRN (11:48)
--- NOTE | 2019-09-17 12:15 | NUR ---
Dr. Phan called to be notified of follow up ABG post PS setting, orders to continue with care plan with no new orders received.
[2019-09-17 12:17] LABS: ABG BASE EXCESS -1.7 mmol/L; ABG HCO3 26.7 mmol/L; ABG PCO2 59.5 mmHg (35.0-45.0); ABG PO2 62.9 mmHg (75.0-100.0); ABG SITE LEFT RADIAL; COHb 0.7 % (0.5-1.5); MetHb 0.5 % (0.0-1.5); O2Hb 87.9 % (94.0-97.0); VENT MODE VENT - PCONTROL
--- NOTE | 2019-09-17 14:27 | NUR ---
A call from cardiothoracic surgeon Micha Balderas, and report on pt's current vent settings given, and as stated by him "there's no need for chest tube insertion at this time just repeat chest x-ray in am and pt will be follow up tomorro".
--- NOTE | 2019-09-17 16:45 | NUR ---
Attending physician Zack De La Rosa in the unit to see and examine pt. report given orders to continue with care plan received.
[2019-09-17] MEDS: CEFTRIAXONE 1 G in IV DEXTROSE 5% 50 ML IV SCH (20:17)
[2019-09-17] MEDS: FAMOTIDINE. 20 MG/2 ML VIAL IV SCH (20:30)
[2019-09-18] VITALS (24 sets, daily range): BP systolic 114–151; BP diastolic 70–98
[2019-09-18] MEDS: FENTANYL CITRAT IV 1,000 MCG in IV NORMAL SALINE 80 ML IV PRN ×8 (00:01→19:38)
[2019-09-18] MEDS: BLOOD SUGAR DIAGNOSTIC 1 EACH STRIP VI SCH ×5 (00:04→23:53)
[2019-09-18] MEDS: INSULIN REGULAR, HUMAN 300 UNIT/3 ML VIAL SQ PRN ×5 (00:06→23:57)
--- NOTE | 2019-09-18 00:31 | NUR ---
PT ON CONT RUSSELL VENT WITH 7.5 ET/ TUBE, ANCHOR FAST MOVED, SETTINGS, NO VENT CHANGES MADE, 100%, PEEP15, , PS 35 RATE 28 , SAT 93-96 %, VERY LITTLE SUCTION, ORAL CARE, MDI GIVEN BY NURSING . PT SEDATED, NO VENT CHANGES MADE AT THIS TIME, ALL VENT ALARMS GOOD, PPE WORN ,Loretta RAYMUNDO LENO SEWER Addendum: 09/18/19 at 0044 by EMILIE RAYMUNDO RT Amended: Links added.
[2019-09-18] MEDS: MIDAZOLAM HCL 50 MG in IV NORMAL SALINE 40 ML IV PRN ×3 (00:49→15:57)
[2019-09-18] MEDS: ALBUTEROL SULFATE 8 GM HFA.AER.AD IH SCH ×4 (01:30→20:05)
[2019-09-18] MEDS: IV NORMAL SALINE 250 ML IV PRN ×2 (03:17→23:44)
[2019-09-18] MEDS: SODIUM BICARBONATE 8.4% 100 MEQ in IV 1/2NS 1000 ML 1,000 ML IV PRN ×3 (04:35→17:02)
[2019-09-18 05:33] LABS: BASOPHILS # (AUTO) 0.1 K/uL (0.0-8.0); BASOPHILS % (AUTO) 0.3 % (0.0-2.0); EOSINOPHILS % (AUTO) 0.1 % (0.0-7.0); HEMATOCRIT 47.1 % (36.7-47.1); HEMOGLOBIN 15.6 g/dL (12.5-16.3); LYMPHOCYTES # (AUTO) 0.3 K/uL (20.0-40.0); LYMPHOCYTES % (AUTO) 1.4 % (20.5-51.5); MEAN CORPUSCULAR HEMOGLOBIN 31.4 uug (23.8-33.4); MEAN CORPUSCULAR HGB CONC 33 g/dL (32.5-36.3); MEAN CORPUSCULAR VOLUME 94.9 fL (73.0-96.2); MONOCYTES # (AUTO) 0.9 K/uL (2.0-10.0); MONOCYTES % (AUTO) 4.9 % (0.0-11.0); NEUTROPHILS # (AUTO) 17.4 K/uL (1.8-8.9); NEUTROPHILS % (AUTO) 93.3 % (38.5-71.5); PLATELET COUNT (AUTO) 186 K/uL (152-348); RED BLOOD CELL COUNT(AUTO) 4.97 MIL/uL (4.06-5.63); WHITE BLOOD COUNT (AUTO) 18.6 K/uL (3.6-10.2)
[2019-09-18 05:38] LABS: CREATININE 7.4 mg/dL (0.6-1.3); MAGNESIUM 3.2 mg/dL (1.8-2.4); POTASSIUM 5.5 mmol/L (3.5-5.1)
[2019-09-18 05:46] LABS: PHOSPHOROUS 14.3 mg/dL (2.5-4.9)
--- NOTE | 2019-09-18 08:10 | NUR ---
Patient received orally intubated with a 7.5 Ettube, ~23cm lipline. Tube is secured with anchor fast. Pt Esposito vent with prescribed settings. MDI TXs administered and tolerated well, no adverse reactions noted. Alarms assessed and are on/audible. Ambubag at bedside. Will continue to monitor throughout shift.
[2019-09-18] MEDS: METOPROLOL TARTRATE 25 MG TABLET NG SCH ×2 (08:17→21:33)
[2019-09-18] MEDS: DEXAMETHASONE SOD PHOSPHATE 10 MG INJ IV SCH (08:20)
[2019-09-18] MEDS: DOXYCYCLINE HYCLATE IV 100 MG in IV DEXTROSE 5% 100 ML IV SCH ×2 (08:20→21:14)
[2019-09-18] MEDS: INSULIN GLARGINE,HUM 300 UNITS/3 ML CARTRIDGE SQ SCH ×2 (08:27→21:42)
[2019-09-18 08:30] LABS: ABG BASE EXCESS -0.9 mmol/L; ABG HCO3 27.2 mmol/L; ABG PCO2 58.5 mmHg (35.0-45.0); ABG PH 7.286 (7.350-7.450); ABG PO2 66.4 mmHg (75.0-100.0); ABG SITE LEFT RADIAL; ABG TOTAL HEMOGLOBIN 16.4 G/dL (13.5-18.0); COHb 0.5 % (0.5-1.5); MetHb 0.6 % (0.0-1.5); O2Hb 89.9 % (94.0-97.0); VENT MODE VENT - PCONTROL; VT, ABG 0 mL
[2019-09-18] MEDS: ACETAMINOPHEN 650 MG/20.3 ML LIQUID UDC GT PRN (08:57)
--- NOTE | 2019-09-18 09:16 | NUR ---
PULMONARY SERVICES, DR. BEE IN THE UNIT TO SEE AND EXAMINE PATIENT. ORDERS TO INCREASE FENTANYL TO 280 WITHOUT TITRATION. AND IF PT. CONTINUOUS TO OVERRIDE VENTILATOR STAR PT. ON PROPOFOL AND IF CONTRAINDICATED FOR PT. PER PHARMACY START PT. ON INDICATED PARALYTIC AGENT.
[2019-09-18 11:36] LABS: ABG BASE EXCESS -6.9 mmol/L; ABG HCO3 19.1 mmol/L; ABG PCO2 40.1 mmHg (35.0-45.0); ABG PH 7.295 (7.350-7.450); ABG PO2 70.3 mmHg (75.0-100.0); ABG SITE LEFT RADIAL; ABG TOTAL HEMOGLOBIN 14.9 G/dL (13.5-18.0); COHb 0.6 % (0.5-1.5); MetHb 0.6 % (0.0-1.5); O2Hb 90.7 % (94.0-97.0); VENT MODE VENT - PCONTROL
--- NOTE | 2019-09-18 11:50 | NUR ---
Cardiothoracic surgeon Dr. Yamel June in the unit to see patient. No order received.
[2019-09-18] MEDS: GLUCERNA 1.2 1000ML LIQUID GT PRN (11:55)
[2019-09-18] MEDS: MORPHINE SULFATE 2 MG/1 ML DISP.SYRIN IV PRN (13:58)
[2019-09-18 14:03] LABS: *BILIRUBIN,URIN NEGATIVE (NEGATIVE); *BLOOD, URINE 3+ (NEGATIVE); *CLARITY,URINE SLIGHTLY CLOUDY (CLEAR); *COLOR,URINE YELLOW (YELLOW); *KETONES,URINE NEGATIVE (NEGATIVE); *UROBILINOGEN,URINE 0.2 E.U./dl (NORMAL); LEUKOCYTE ESTERASE ,URINE TRACE (NEGATIVE); NITRITE, URINE NEGATIVE (NEGATIVE); PH,URINE 5.5 (5.0-8.0); UGLUCOSE NEGATIVE (NEGATIVE)
--- NOTE | 2019-09-18 15:30 | NUR ---
Attending physician Ramón De La Rosa. in the unit to see and examine patient, report given, orders to remind ID to fill up the require form for pt. to receive convalescent plasma received.
[2019-09-18 15:32] LABS: BACTERIA,URINE FEW /HPF (NONE SEEN); SQUAMOUS EPITHELIAL CELL,UR FEW /HPF (NONE SEEN)
[2019-09-18 15:33] LABS: URIC ACID CRYSTALS,URINE MODERATE /HPF (NONE SEEN)
[2019-09-18] MEDS: HEPARIN/D5W DRIP 500 ML IV PRN (16:00)
--- NOTE | 2019-09-18 16:00 | NUR ---
Spoke with ID physician. Dr. Fox and require documentation for (CV) faxed to .
--- NOTE | 2019-09-18 16:00 | NUR ---
Nephrology services, Dr. Castro in the unit to see and examine pt. report given.
--- NOTE | 2019-09-18 18:52 | NUR ---
PHARMACY CLINICAL NOTES: VANCOMYCIN DOSING S: 54 yo male with Covid-19 PNA on On dexamethasone s/p Remdesivir , on Ceftriaxone and Doxycylcine for empiric tx of PNA, still running a fever. ID ordered Vancomycin for suspected MRSA PNA O: bun/scr 200/7.4 (not dialysis pt), WBC 18.6, temp 100.4, T 1/ 49.5 A/P:Since pt's renal fxn is deteriorating; will dose Vancomycin by fall of level. Will give 1 dose of Vancomycin 1500 mg x 1. Will decide tomorrow morning when to order level based on Scr value. Will continue to monitor renal fxn and levels and adjust the dose accordingly.
[2019-09-18] MEDS ORDERED: VANCOMYCIN IV 1,500 MG in IV DEXTROSE 5% 500 ML IV ONE (19:00)
[2019-09-18] MEDS: FAMOTIDINE. 20 MG/2 ML VIAL IV SCH (21:00)
[2019-09-18] MEDS: CEFTRIAXONE 1 G in IV DEXTROSE 5% 50 ML IV SCH (21:14)
--- NOTE | 2019-09-18 22:00 | NUR ---
Plasmanate specific type, not available tonight.
[2019-09-19] VITALS (36 sets, daily range): BP systolic 61–142; BP diastolic 41–83
[2019-09-19] MEDS: MORPHINE SULFATE 2 MG/1 ML DISP.SYRIN IV PRN (00:17)
[2019-09-19] MEDS: MIDAZOLAM HCL 50 MG in IV NORMAL SALINE 40 ML IV PRN ×5 (00:40→19:57)
[2019-09-19] MEDS: ALBUTEROL SULFATE 8 GM HFA.AER.AD IH SCH ×4 (01:45→19:30)
--- NOTE | 2019-09-19 02:43 | NUR ---
PT ON CONT RUSSELL VENT WITH 7.5 ET/TUBE IN PLACE AND SECURED WITH ANCHOR FASTIN PLACE; SUCTIONED VERY LIGHT WHITISH TINGE SECRETIONS, CHECK ALL ALARMS OK, NO VENT CHANGES MADE, , MDI GIVEN, ABG IN AM. D ZACKARY RCPER LIP, NO BLOOD, A/C 28, PC 30 , 100%, PEEP 15, SEDATED, Addendum: 09/19/19 at 0251 by EMILIE RAYMUNDO RT Amended: Links added.
[2019-09-19] MEDS: FENTANYL CITRAT IV 1,000 MCG in IV NORMAL SALINE 80 ML IV PRN ×6 (04:13→20:51)
[2019-09-19] MEDS: SODIUM BICARBONATE 8.4% 100 MEQ in IV 1/2NS 1000 ML 1,000 ML IV PRN ×3 (04:17→17:12)
[2019-09-19] MEDS: BLOOD SUGAR DIAGNOSTIC 1 EACH STRIP VI SCH ×4 (06:00→23:59)
[2019-09-19 06:02] LABS: *CREATININE,URINE 134.5 mg/dL (30-125)
[2019-09-19 06:35] LABS: MEAN CORPUSCULAR HEMOGLOBIN 31.5 uug (23.8-33.4); MEAN CORPUSCULAR HGB CONC 33 g/dL (32.5-36.3)
[2019-09-19 06:40] LABS: BASOPHILS # (AUTO) 0.1 K/uL (0.0-8.0); BASOPHILS % (AUTO) 0.7 % (0.0-2.0); EOSINOPHILS % (AUTO) 0.1 % (0.0-7.0); LYMPHOCYTES # (AUTO) 0.5 K/uL (20.0-40.0); LYMPHOCYTES % (AUTO) 2.5 % (20.5-51.5); MEAN CORPUSCULAR VOLUME 94.6 fL (73.0-96.2); MONOCYTES # (AUTO) 0.7 K/uL (2.0-10.0); MONOCYTES % (AUTO) 3.8 % (0.0-11.0); NEUTROPHILS # (AUTO) 16.9 K/uL (1.8-8.9); NEUTROPHILS % (AUTO) 92.9 % (38.5-71.5); PLATELET COUNT (AUTO) 148 K/uL (152-348); RED BLOOD CELL COUNT(AUTO) 4.44 MIL/uL (4.06-5.63); WHITE BLOOD COUNT (AUTO) 18.2 K/uL (3.6-10.2)
[2019-09-19] MEDS: INSULIN REGULAR, HUMAN 300 UNIT/3 ML VIAL SQ PRN ×3 (06:42→17:22)
[2019-09-19 06:58] LABS: MAGNESIUM 3.3 mg/dL (1.8-2.4); POTASSIUM 5.9 mmol/L (3.5-5.1)
[2019-09-19 07:01] LABS: CREATININE 9.2 mg/dL (0.6-1.3)
[2019-09-19] MEDS: HEPARIN/D5W DRIP 500 ML IV PRN (07:02)
--- NOTE | 2019-09-19 07:23 | NUR ---
Received patient on ventilator as reported HD catheter to right femoral access, Pt on ventilator PC 30 +peep 15 100% FO2 with saturation mid-to stephen 80's. pt overbreathing ventilator, and distress noted. OG tube with residuals of 350. jaquez to gravity. Pulmonary services, will be notified of changes in saturation.
--- NOTE | 2019-09-19 07:45 | NUR ---
Pulmonary services, Dr. Phan in the unit to see and examine patient, full report given. aware of saturation. orders to increase sedation received and implemented.
[2019-09-19 07:46] LABS: *BILIRUBIN,URIN NEGATIVE (NEGATIVE); *BLOOD, URINE 3+ (NEGATIVE); *CLARITY,URINE CLOUDY (CLEAR); *COLOR,URINE YELLOW (YELLOW); *KETONES,URINE NEGATIVE (NEGATIVE); *UROBILINOGEN,URINE 0.2 E.U./dl (NORMAL); LEUKOCYTE ESTERASE ,URINE NEGATIVE (NEGATIVE); NITRITE, URINE NEGATIVE (NEGATIVE); PH,URINE 5.5 (5.0-8.0); UGLUCOSE NEGATIVE (NEGATIVE)
[2019-09-19 07:51] LABS: ABG HCO3 25.4 mmol/L; ABG PCO2 53.7 mmHg (35.0-45.0); ABG PH 7.293 (7.350-7.450); ABG PO2 60.2 mmHg (75.0-100.0); ABG SITE LEFT RADIAL; ABG TOTAL HEMOGLOBIN 14.8 G/dL (13.5-18.0); COHb 0.7 % (0.5-1.5); MetHb 0.6 % (0.0-1.5); VENT MODE VENT - PCONTROL 30
[2019-09-19 07:57] LABS: BACTERIA,URINE FEW /HPF (NONE SEEN); SQUAMOUS EPITHELIAL CELL,UR FEW /HPF (NONE SEEN); URIC ACID CRYSTALS,URINE MODERATE /HPF (NONE SEEN); URINE AMORPHOUS URATE PRESENT /HPF; WBC,URINE 0-3 /HPF (0-3)
[2019-09-19] MEDS: DOXYCYCLINE HYCLATE IV 100 MG in IV DEXTROSE 5% 100 ML IV SCH ×2 (08:00→20:57)
[2019-09-19] MEDS: METOPROLOL TARTRATE 25 MG TABLET NG SCH ×2 (08:00→20:56)
[2019-09-19] MEDS: DEXAMETHASONE SOD PHOSPHATE 10 MG INJ IV SCH (08:01)
[2019-09-19] MEDS: INSULIN GLARGINE,HUM 300 UNITS/3 ML CARTRIDGE SQ SCH ×2 (08:02→21:13)
[2019-09-19] MEDS ORDERED: VANCOMYCIN IV 750 MG in IV DEXTROSE 5% 250 ML IV SCH (09:00)
--- NOTE | 2019-09-19 10:19 | NUR ---
HD rn in the unit and due to desaturation patient not tolerating repositioning.
[2019-09-19] MEDS ORDERED: MANNITOL 25% 12.5 G/50 ML VIAL IV ONE (10:30)
--- NOTE | 2019-09-19 11:35 | NUR ---
PHARMACY CLINICAL NOTES: VANCOMYCIN DOSING S: To continue vanco dosing for this 54 yo male with Covid-19 PNA for suspected MRSA PNA. Patient is new start on HD (started on 09/19/19) O: bun/scr 269/9.2 (on HD), WBC 18.2, temp 99.3 ht 175 cm wt 126 cm Vanco pre-HD level on 09/18 with am labs: 21.8 A/P:HD has been scheduled for today. No dose shall be due today post HD, since pre-HD level is above 20 mcg/ml. Will continue to dose by pre-HD level (next level not yet ordered). Will continue to follow
--- NOTE | 2019-09-19 12:30 | NUR ---
Hemodialysis completed at this time saturation in the 80-81%. sbp of 109/76, HR 106.
--- NOTE | 2019-09-19 13:00 | NUR ---
patient saturation remain in the lower to mid 80's post hemodialysis. Orders to start pt. on paralytic agents per Dr. Phan.
[2019-09-19] MEDS ORDERED: ROCURONIUM BROMIDE 100 MG in IV NORMAL SALINE 90 ML IV PRN (13:15)
[2019-09-19] MEDS ORDERED: ROCURONIUM BROMIDE 50 MG/5 ML VIAL IV PRN (14:00)
--- NOTE | 2019-09-19 14:00 | NUR ---
Dr. Phan notified of continuous drop on saturation and at this time connected to pharmacist to discuss care plan since paralytics not recommended for patient.
--- NOTE | 2019-09-19 14:30 | NUR ---
Orders to start patient on propofol drip as discussed by pharmacy and Dr. Phan.
[2019-09-19] MEDS ORDERED: PROPOFOL 100 ML IV PRN (15:30)
[2019-09-19] MEDS ORDERED: MINERAL OIL/PETROLAT OPHT OINT 3.5 GM TUBE EACHEYE PRN ×2 (16:00→17:00)
[2019-09-19] MEDS: PROPOFOL 100 ML IV PRN ×2 (16:10→21:36)
--- NOTE | 2019-09-19 17:08 | NUR ---
Dr. Phan notified of pt's current condition and current saturation this time with RT Reeder in the unit. Vent change orders received and implemented by RT Reeder. Addendum: 09/19/19 at 1725 by NATALIE CARREON RN Ispiratory pressure up to 0.28 and Peep up to 20 to maintain saturation 80% or above.
--- NOTE | 2019-09-19 18:09 | NUR ---
Pulmonary services, Dr. Phan notified of pt's saturation 1 hour post vent changes ordered. Will continue to monitor. Addendum: 09/19/19 at 1842 by NATALIE CARREON RN A call back from Dr. Phan orders to continue monitoring received.
--- NOTE | 2019-09-19 18:45 | NUR ---
Left pt. on Vent: PC30 IE ratio of 0.28 100% FIO2 Peep of 20 and saturation 75-76% Hot Kettle Tender Dr. hPan aware. Pt. on versed and fentanyl running at maximum, propofol added as order and running at 15mcg/kg/hr. patient well sedated no tachypnea or overbreathing ventilator. Ng tube on hold due large residual. jaquez to gravity no output. pt with first round of HD earlier with a total of 1.5L out. Will endorse and continue to monitor.
[2019-09-19] MEDS: PHENYLEPHRINE IV 50 MG in IV NORMAL SALINE 245 ML IV PRN (20:00)
--- NOTE | 2019-09-19 20:00 | NUR ---
RECEIVED PT ORALLY INTUBATED TO VENT W/ SETTINGS OF AC-28, TV-550, PC-30 IE RATIO 0.28 FIO2-100% W/ O2 SAT OF 75%. BP-61/51, CALLED DR. NEWSOME W/ ORDER. NEOSYNEPHRINE DRIP STARTED @ 0.5 MCQ/KG/MIN ON AUTUMN PICC LINE.ON VERSED DRIP @ 10MG/HR. FENTANYL DRIP @ 0.35MG/HR. HEPARIN DRIP @ 1420 UNITS/HR. 1/2NS W/ 100MEQ SODIUM BICARB @ 100CC/HR. DIPRIVAN DRIP @ 15MCQ/KG/MIN.ORAL GASTRIC INTACT & CLAMPED. KEPT HOB ELEVATED.
[2019-09-19] MEDS: ACETAMINOPHEN 650 MG/20.3 ML LIQUID UDC GT PRN (20:39)
[2019-09-19] MEDS: FAMOTIDINE. 20 MG/2 ML VIAL IV SCH (20:57)
--- NOTE | 2019-09-19 22:00 | NUR ---
INCREASED NEOSYNEPHRINE DRIP BP IS LOW.
[2019-09-20] VITALS (85 sets, daily range): BP systolic 0–122; BP diastolic 0–93
[2019-09-20] MEDS: INSULIN REGULAR, HUMAN 300 UNIT/3 ML VIAL SQ PRN ×2 (00:01→05:54)
[2019-09-20] MEDS: FENTANYL CITRAT IV 1,000 MCG in IV NORMAL SALINE 80 ML IV PRN ×8 (00:11→21:06)
[2019-09-20] MEDS: HEPARIN/D5W DRIP 500 ML IV PRN ×2 (00:18→21:26)
[2019-09-20] MEDS: ALBUTEROL SULFATE 8 GM HFA.AER.AD IH SCH ×4 (00:44→20:29)
--- NOTE | 2019-09-20 00:44 | NUR ---
RECEIVED PT ORALLY INTUBATED WITH A SIZE 7.5 ET TUBE AT APPROX. 23CM LIP LINE. ET TUBE IS SECURED WITH THE ANCHOR FAST. ORAL CARE DONE. SUCTIONS PINK TINGED SECRETIONS. HME AND BACTERIA/VIRAL FILTER CHANGED. MDI TX'S GIVEN PER MD ORDERS. NO ADVERSE REACTIONS. AMBU BAG IS BY BEDSIDE. SPO2 LOW, RN GRADY IS AWARE. WILL CONTINUE TO MONITOR.
[2019-09-20] MEDS: MIDAZOLAM HCL 50 MG in IV NORMAL SALINE 40 ML IV PRN ×4 (01:27→20:01)
--- NOTE | 2019-09-20 04:00 | NUR ---
AM CARE DONE. ORAL CARE DONE.
[2019-09-20] MEDS: IV NORMAL SALINE 250 ML IV PRN (04:41)
[2019-09-20] MEDS: SODIUM BICARBONATE 8.4% 100 MEQ in IV 1/2NS 1000 ML 1,000 ML IV PRN ×3 (04:44→20:21)
--- NOTE | 2019-09-20 05:30 | NUR ---
endorsed to daniel , according to dr dalal , patient has a tiny apical pneumothorax
[2019-09-20] MEDS: BLOOD SUGAR DIAGNOSTIC 1 EACH STRIP VI SCH ×3 (05:52→18:20)
--- NOTE | 2019-09-20 06:30 | NUR ---
DR NEWSOME NOTIFIED OF CXR RESULT.& ALSO IF HE WANTS LOW BP.ANOTHER PRESSOR FOR THE PT.
--- NOTE | 2019-09-20 06:43 | NUR ---
DEMETRIUS HEATH CALLED RE: BP & CXR RESULT. WILL BACK.
--- NOTE | 2019-09-20 06:46 | NUR ---
DEMETRIUS SOLIS MEAT APPRENTICE CALLED NOTIFIED OF CXR RESULT W/ TINY APICAL PNEUMOTHORAX & LOW BP W/ ORDER..
[2019-09-20] MEDS ORDERED: NOREPINEPHRINE BITARTRATE 8 MG in IV NORMAL SALINE 242 ML IV PRN (07:00)
--- NOTE | 2019-09-20 07:30 | NUR ---
RECIEVED PT IN BED, SEDATED ON FENTANYL, VERSED AND PROPOFOL DRIP ORDERED TO SEDATE THE PT WELL. HR IS ST IN 140-170B/MIN. SBP IS LOW IN THE 60 SYSTOLIC. LEVOPHED DRIP STARTED AT 0.1MCG/KG/MIN. AFEBRILE.
--- NOTE | 2019-09-20 08:00 | NUR ---
PT ON VENT AT AC-28, VT-550, PEEP-20, PC-30, FIO2-100%. PT IS OCCASSIONALLY OVERRIDING THE MACHINE. SEEN AND EXAMINED BY DR BEE WITH NEW ORDERS.
[2019-09-20 08:04] LABS: ABG BASE EXCESS -7.6 mmol/L; ABG PCO2 86.7 mmHg (35.0-45.0); ABG PH 7.078 (7.350-7.450); ABG PO2 41.5 mmHg (75.0-100.0); ABG SITE RIGHT RADIAL; ABG TOTAL HEMOGLOBIN 16.5 G/dL (13.5-18.0); COHb 1.4 % (0.5-1.5); MetHb 0.5 % (0.0-1.5); O2Hb 61.4 % (94.0-97.0); VENT MODE VENT - PCONTROL - 28
[2019-09-20] MEDS: METOPROLOL TARTRATE 25 MG TABLET NG SCH ×2 (09:00→21:00)
[2019-09-20] MEDS ORDERED: MEROPENEM 500 MG in IV NORMAL SALINE 50 ML IV SCH (09:00)
[2019-09-20] MEDS: DEXAMETHASONE SOD PHOSPHATE 10 MG INJ IV SCH (09:13)
[2019-09-20] MEDS: DOXYCYCLINE HYCLATE IV 100 MG in IV DEXTROSE 5% 100 ML IV SCH ×2 (09:16→21:52)
--- NOTE | 2019-09-20 10:00 | NUR ---
HD STARTED IN THE ROOM, PT BP IS DROPPING. [id number] TO PULL FLUID , IS AWARE.
[2019-09-20] MEDS: PROPOFOL 100 ML IV PRN ×3 (10:03→22:19)
[2019-09-20 10:42] LABS: BASOPHILS # (AUTO) 0.1 K/uL (0.0-8.0); BASOPHILS % (AUTO) 0.4 % (0.0-2.0); HEMATOCRIT 51.4 % (36.7-47.1); HEMOGLOBIN 16.3 g/dL (12.5-16.3); LYMPHOCYTES # (AUTO) 0.4 K/uL (20.0-40.0); LYMPHOCYTES % (AUTO) 1.7 % (20.5-51.5); MEAN CORPUSCULAR HEMOGLOBIN 31.3 uug (23.8-33.4); MEAN CORPUSCULAR HGB CONC 32 g/dL (32.5-36.3); MEAN CORPUSCULAR VOLUME 98.8 fL (73.0-96.2); MONOCYTES # (AUTO) 0.9 K/uL (2.0-10.0); MONOCYTES % (AUTO) 4.2 % (0.0-11.0); NEUTROPHILS % (AUTO) 93.7 % (38.5-71.5); PLATELET COUNT (AUTO) 134 K/uL (152-348); RED BLOOD CELL COUNT(AUTO) 5.21 MIL/uL (4.06-5.63); WHITE BLOOD COUNT (AUTO) 22.4 K/uL (3.6-10.2)
[2019-09-20] MEDS ORDERED: NORMAL SALINE IV PRN ×4 (11:00)
[2019-09-20] MEDS ORDERED: CISATRACURIUM BESYLATE IV PRN ×4 (11:00)
[2019-09-20] MEDS: PHENYLEPHRINE IV 50 MG in IV NORMAL SALINE 245 ML IV PRN (11:01)
[2019-09-20 11:14] LABS: MAGNESIUM 3.3 mg/dL (1.8-2.4)
[2019-09-20 11:36] LABS: POTASSIUM 6.2 mmol/L (3.5-5.1)
[2019-09-20 12:00] LABS: CREATININE 9.9 mg/dL (0.6-1.3); PHOSPHOROUS 21.5 mg/dL (2.5-4.9)
[2019-09-20] MEDS ORDERED: ALBUMIN HUMAN 25% 100 ML IV ONE (12:00)
--- NOTE | 2019-09-20 13:18 | NUR ---
PHARMACY CLINICAL NOTES: VANCOMYCIN DOSING S: To continue vanco dosing for this 54 yo male with Covid-19 PNA for suspected MRSA PNA. Patient is new start on HD (started on 09/19/19) O: bun/scr 212/9.9 (on HD), WBC 22.4, temp 99.8 ht 175 cm wt 126 cm Vanco pre-HD level on 09/18 with am labs: 21.8 Vanco pre-HD level on 09/19 with am labs: 12.3 A/P:HD has been scheduled for today. Will give vanco 1 gm IVPB x1 today at 1600 (post HD) sicne pre-HD level is 12.3 mcg/ml today. Will continue to dose by pre-HD level (next level not yet ordered). Will continue to follow
--- NOTE | 2019-09-20 14:00 | NUR ---
A NEW PICC LINE INSERTED BY PICC LINE RN ON THE LINSEY ORDERED. AFEBRILE.
[2019-09-20] MEDS: NOREPINEPHRINE BITARTRATE 32 MG in IV NORMAL SALINE 218 ML IV PRN (14:40)
[2019-09-20] MEDS: PHENYLEPHRINE IV 100 MG in IV NORMAL SALINE 240 ML IV PRN ×2 (14:53→19:39)
[2019-09-20] MEDS ORDERED: VANCOMYCIN IV 1,000 MG in IV DEXTROSE 5% 250 ML IV ONE (16:00)
--- NOTE | 2019-09-20 18:30 | NUR ---
PT IS IN VERY FRAGILE CONDITION. NO URINE OUTPUT.
--- NOTE | 2019-09-20 19:05 | NUR ---
PT RECEIVED ON CONTINUOUS VENT, PC 28 PEEP 20 RATE 28 FIO2 100%. MDI TX GIVEN ORDERED. SUCTION PRN. VENT CHECKED, ALARMS WORKING WELL AND AUDIBLE. NO VENT CHANGES MADE AT THIS TIME. WILL CONTINUE TO MONITOR.
--- NOTE | 2019-09-20 19:15 | NUR ---
Patient received in bed in very fragile and critical condition. He is orally intubated with a 7.5 Ett @23cm lip line. He is on Esposito vent Pressure Control rate 28, Vt 550, FiO2 30%, PEEP 20, and Pressure Control 30. Spo2 holding steady at 85%. Patient has numerous IV lines, AUTUMN PICC, LINSEY PICC, Right and Left AC peripheral line, Right forearm peripheral line, and a Right Femoral Dialysis catheter. OGT clamped to suction. F/C producing no urine. Patient is on continuous rectal temperature monitoring. Dialysis completed today with 0 fluid removed. Patient is on the following Drips for sedation maintenance: Propofol @20mcg/kg/min Midazolam @10mL/hr Fentanyl @0.350mg/kg/min Running the following drips for BP maintenance: Phenylephrine @3mcg/kg/min Norepinephrine @0.4 mcg/kg/min Other drips: heparin @970 Units/hr 0.45% NS + 8.4% Sodium Bicarbonate @100ml/hr
[2019-09-20] MEDS ORDERED: DOXYCYCLINE HYCLATE 100 MG INJ IV ONE (21:20)
[2019-09-20] MEDS: ACETAMINOPHEN 650 MG/20.3 ML LIQUID UDC GT PRN (21:27)
[2019-09-20] MEDS: FAMOTIDINE. 20 MG/2 ML VIAL IV SCH (21:27)
[2019-09-21] VITALS: BP 93/44
[2019-09-21] MEDS: PHENYLEPHRINE IV 100 MG in IV NORMAL SALINE 240 ML IV PRN (00:06)
[2019-09-21 00:15] VITALS: BP 86/44
[2019-09-21] MEDS: FENTANYL CITRAT IV 1,000 MCG in IV NORMAL SALINE 80 ML IV PRN (00:25)
[2019-09-21] MEDS: NOREPINEPHRINE BITARTRATE 32 MG in IV NORMAL SALINE 218 ML IV PRN (00:27)
[2019-09-21 00:30] VITALS: BP 82/38
[2019-09-21] MEDS: ALBUTEROL SULFATE 8 GM HFA.AER.AD IH SCH (00:45)
[2019-09-21] MEDS ORDERED: EPINEPHRINE 1:10,000 1 MG/10 ML DISP.SYRIN IV ONE (01:54)
--- NOTE | 2019-09-21 02:00 | NUR ---
@0030 Patient's blood pressure began to decline. Norepinephrine increased as necessary. @0100 BP within parameters. I went into the patient's room to render midnight care. 0130 Patient's BP continued to decline. Norepinephrine increased. 0140, patient began to become bradycardic in the low 40s, manually confirmed using carotid palpation. Code Blue initiated. Dr. Nathan reported from the ER. CPR and manual ventilation completed with 2 rounds of IV epinephrine. After last epinephrine. Dr. Nathan confirmed asystole and no cardiac activity. Dr. Nathan called time of @0155. [facility] provider Bola Hidalgo ACNP notified of the patient's expiration and time of . [employer] notified Case # [id number] Family notified of patient passing. Family did not have any mortuary arrangements made.
--- NOTE | 2019-09-21 02:07 | NUR ---
code blue, cpr initiated immediately bagging with 100% O2. cpr done alternately with RT Lex. at 0155 Dr. mercado ordered to stop cpr V/S asystole. pt pronounced at 0155.
== END 2019-09-21 01:55 | disposition expired | DRG 720 ==
LOC: CCU 16:07
PROVIDERS: ADMIT Internal Medicine; ATTEND Nurse Practitioner Acute Care
PROC: 5A1955Z Respiratory Ventilation, Greater than 96 Consecutive Hours (ICD-10-PCS; 2019-09-13)
PROC: B548ZZA Ultrasonography of Superior Vena Cava, Guidance (ICD-10-PCS; principal; 2019-09-14)
PROC: 02HV33Z Insertion of Infusion Device into Superior Vena Cava, Percutaneous Approach (ICD-10-PCS; principal; 2019-09-14)
PROC: 06HY33Z Insertion of Infusion Device into Lower Vein, Percutaneous Approach (ICD-10-PCS; 2019-09-18)
PROC: 5A1D70Z Performance of Urinary Filtration, Intermittent, Less than 6 Hours Per Day (ICD-10-PCS; 2019-09-19)
PROC: 02HV33Z Insertion of Infusion Device into Superior Vena Cava, Percutaneous Approach (ICD-10-PCS; 2019-09-20)
PROC: B548ZZA Ultrasonography of Superior Vena Cava, Guidance (ICD-10-PCS; 2019-09-20)
PROC: 5A12012 Performance of Cardiac Output, Single, Manual (ICD-10-PCS; 2019-09-21)
DX: A41.89 Other specified sepsis (principal); U07.1 COVID-19; N17.0 Acute kidney failure with tubular necrosis; J96.21 Acute and chronic respiratory failure with hypoxia; R65.21 Severe sepsis with septic shock; E43 Unspecified severe protein-calorie malnutrition; J12.89 Other viral pneumonia; G93.40 Encephalopathy, unspecified; D68.69 Other thrombophilia; M62.82 Rhabdomyolysis; J96.22 Acute and chronic respiratory failure with hypercapnia; E66.2 Morbid (severe) obesity with alveolar hypoventilation; Z68.41 Body mass index [BMI] 40.0-44.9, adult; E87.5 Hyperkalemia; E11.65 Type 2 diabetes mellitus with hyperglycemia; I10 Essential (primary) hypertension; E87.0 Hyperosmolality and hypernatremia; E83.51 Hypocalcemia; E83.41 Hypermagnesemia; D69.6 Thrombocytopenia, unspecified; E83.39 Other disorders of phosphorus metabolism; J93.9 Pneumothorax, unspecified; T79.7XXA Traumatic subcutaneous emphysema, initial encounter; Y84.8 Other medical procedures as the cause of abnormal reaction of the patient, or of later complication, without mention of misadventure at the time of the procedure; Y72.8 Miscellaneous otorhinolaryngological devices associated with adverse incidents, not elsewhere classified; Y92.230 Patient room in hospital as the place of occurrence of the external cause; I46.9 Cardiac arrest, cause unspecified
CPT/HCPCS: 36415; 36600; 70030-TC; 71045; 83550; 83615; 83735; 83970; 84100; 84155; 84156; 84165; 84300; 84443; 84478; 85025; 85610; 85730; 86140; 86803; 86850; 86900; 86901; 87070; 87086; 87328; 87806; 93005; 94002; 94003; A4663; G0378; J0171; J0696; J1100; J1200; J1644; J1650; J1815; J2150; J2185; J2250; J2270; J2370; J3010; J3262; J3370; J3490; J3535; J7030; J7050; J7060; P9047